=== PATIENT | male | born 1985 | race Caucasian/White ===

== ENCOUNTER 2020-02-16 11:57 | Emergency (ER) | payer SELFPAY ==
[2020-02-16 11:58] VITALS: BP 146/100; PULSE 90; RESP 20; TEMP 36.9; O2SAT 98; BMI 24.7
--- NOTE | 2020-02-16 12:13 | RAD_ITS ---
STUDY: X-RAY - LEFT HAND REASON FOR EXAM: Male, 34 years old. TRAUMA TO LT INDEX FINGER DISTAL PHAL. HAND VS CAR WINDOW. LTD ROM TECHNIQUE: 4 view(s) of the hand. COMPARISON: None. FINDINGS: Normal radiocarpal articulation. Normal distal radioulnar joint. Normal visualized carpal bones. Normal carpal articulations Normal carpometacarpal articulation of the thumb. Normal second through fifth carpometacarpal joints. Normal metacarpi. Normal metacarpophalangeal joint of the thumb. Normal interphalangeal joint of the thumb. Normal proximal and distal phalanges of the thumb. Normal metacarpophalangeal joints of the second through fifth fingers. Normal proximal and distal interphalangeal joints of the second through fifth fingers. Normal phalanges of the third through fifth fingers. There is acute fracture of the tuft of the distal phalanx of the second finger. The soft tissue structures are unremarkable. RAD/Hand Min 3 Views IMPRESSION: Fracture of the tuft of the second finger. Electronically Signed: Skyler Toro MD at 13:40 EDT , Service support ,
--- NOTE | 2020-02-16 12:17 | ED.VISSUMM ---
- ER Visit Summary Date of Service: 02/16/20 Chief Complaint: Left index finger injury History of Present Illness: The patient is a 34 M past medical history of hypertension. Patient is right-hand dominant. He was helping a friend fix their car window when he got stuck in the tract in the car. Paramedics were called. He is a laceration of his left index finger and he is worried it is broken. Placed him in a splint. He denies other injuries. This occurred within the last hour. Physical Examination: Young male complain of pain vital signs stable afebrile. at bedside. HEENT exam unremarkable. Lungs clear to auscultation bilaterally. Heart regular rhythm no murmur. Rate about 90. Chest wall nontender. Abdomen soft nontender. Extremities moves all 4. Neurovascular intact. The left, shoulder elbow forearm and wrist are nontender neurovascular intact. Strong radial pulse. Left index finger is a laceration laterally with antibiotic ointment from the paramedics. I took him out of the air splint to head and then. He does not do full range of motion left index and long finger due to pain. There is no gross bony deformity. Distally he has cap refill intact sensation. Test Results: Left hand x-ray 3 views read by myself fracture or dislocation. I went over the x-rays with the patient and his . Emergency Department Course and Treatment: Treated with morphine for pain. Zofran. On repeat exam notes 1305 p.m. We washed his hands thoroughly. There is an abrasion and contusion of the left index finger on the distal phalanx but there is nothing to sew. He is able do flexion-extension all digits of the hand. There is some mild swelling of the left index finger but no bony deformity. MRI of the x-rays of both he and his . Wound to be cleaned and dressed. Bacitracin applied and tube gauze. Treatment Plan: Wound care. Ice and elevate. Tylenol Motrin for pain. Follow-up with a local primary care physician. Disposition: Discharge Impression: Left index finger contusion and abrasion This note was generated with [employer] dictation software. It may contain incorrect words, spelling, and punctuation that were not noted in review of the chart prior to signing ED Disposition - Plan for ED Patient: Referrals: NOT,DEFINED [NON-STAFF] -
[2020-02-16] MEDS: morphine 8 MG/ML Syringe IV (12:24)
[2020-02-16] MEDS: Ondansetron 4 MG/2 ML Vial IV (12:24)
[2020-02-16 12:28] VITALS: BP 133/96; PULSE 79; RESP 16; O2SAT 99
--- NOTE | 2020-02-16 13:13 | ED.DEP ---
ED Disposition - Plan for ED Patient: Disposition: Home or Assisted Living Instructions: ED CONTUSION Finger Referrals: London Vernon MD [NON-STAFF] - As Needed Additional Instructions: There is nothing to sew repair of your left index finger. You have a contusion which is swollen tissue and a mild laceration. Keep the wound clean. Keep it dry. Keep antibiotic ointment on it daily. This should progressively get better. Ice and elevate to decrease pain and swelling. Tylenol Motrin for pain. Follow-up if not improving. Return if any signs of infection such as redness, fever, streaks or pus.
== END 2020-02-16 13:28 | disposition home or self-care (01) ==
PROVIDERS: Emergency Provider Emergency Medicine
DX: S60.022A Contusion of left index finger without damage to nail, initial encounter (principal); S60.411A Abrasion of left index finger, initial encounter; S61.211A Laceration without foreign body of left index finger without damage to nail, initial encounter; I10 Essential (primary) hypertension; V49.3XXA Car occupant (driver) (passenger) injured in unspecified nontraffic accident, initial encounter; Y93.9 Activity, unspecified; Y92.89 Other specified places as the place of occurrence of the external cause; Y99.9 Unspecified external cause status
CPT/HCPCS: 73130; 96374; 96375; 99285; A4216; J2405